=== PATIENT | male | born 1955 | race Caucasian/White ===

== ENCOUNTER 2020-06-12 00:57 | Inpatient (IN) | payer BC ==
[2020-06-12] MEDS ORDERED: HYDROmorphone 0.5 MG/0.5 ML Syringe IVPUSH ONE (01:17)
[2020-06-12] MEDS ORDERED: Metoclopramide 10 MG/2 ML SDV IVPUSH ONE (01:17)
--- NOTE | 2020-06-12 01:21 | EDM.PDOC ---
ED HPI GENERAL MEDICAL PROBLEM - General Chief Complaint: Abdominal Pain Stated Complaint: ABDOMINAL PAIN Time Seen by Provider: 06/12/20 01:02 Source of Information: Reports: Patient History Limitations: Reports: No Limitations - History of Present Illness INITIAL COMMENTS - FREE TEXT/NARRATIVE: 65-year-old male presents to the ED complaining of diffuse primarily upper abdominal pain that radiates along the bottom of each costal margin slightly towards his flank. He states he has had persistent upper abdominal discomfort for the last 3 days in a row. He is eaten small quantities of food without making the pain any worse but no better. Last tried to eat a few scrambled eggs about 2000 hrs. last evening but got only about half of his meal down. He is still passing flatus. He had a normal bowel movement within the last 24 hours without blood. He states he has had this type of pain off and on for the last 5 weeks prior to this he has never had any abdominal problems. He has had no previous abdominal surgery. Occasionally feels nauseated due to the intensity of the pain but has never vomited. Current pain is rated as 9 out of 10. There is no way that he could sleep due to the severity the pain tonight. He has been drinking Gatorade and Powerade most of the weekend. He states his urine is nice and clear. Denies any real flank pain. His only previous surgery is a right total hip replacement recently done with the aid of robotic assistance. He is currently taking no medications. Onset: Gradual Onset Date: 06/09/20 (Pain syndrome has been present for the last 3 days continuously but worse in the last 24 hours. Describes it as a constant deep ache with intermittent colicky component. He is aware of increased bowel sounds throughout his abdomen.) Duration: Day(s):, Getting Worse, Other (Pain does seem to have a colicky component mostly felt in his epigastrium.) Location: Reports: Abdomen (Early upper abdomen but sometimes below the umbilicus as well both sides.) Quality: Reports: Ache, Other Severity: Moderate (Vaginal sharp stabbing colicky type pain.) Improves with: Reports: None ( Currently 9 out of 10.) Worsens with: Reports: None Context: Denies: Activity, Exercise, Lifting, Sick Contact, Trauma, Other Associated Symptoms: Reports: Loss of Appetite, Nausea/Vomiting, Other (Deep breathing does not make the abdominal pain worse.). Denies: Confusion, Chest Pain, Cough, cough w sputum, Diaphoresis, Fever/Chills, Headaches, Malaise, Rash, Seizure (Is he without vomiting.), Shortness of Breath, Syncope, Weakness Treatments MANAGER OF PROJECT MANAGEMENT: Reports: Other (see below) Abdominal Pain Score (Numeric/FACES): 7 - Related Data Allergies Allergy/AdvReac Type Severity Reaction Status Date / Time No Known Allergies Allergy Verified 06/12/20 01:11 Home Meds: Home Meds . [No Known Home Meds] 06/12/20 [History] Past Medical History - Past Surgical History Musculoskeletal Surgical History: Reports: Hip Replacement (Right total hip replacement with the assist of robotic surgery. It was done early January 2020 by the [facility] orthopedic surgeon. He states he required very little back pain medication after the hip was fixed as it felt so much better.) Social & Family History - Tobacco Use Tobacco Use Status *Q: Never Tobacco User - Alcohol Use Alcohol Use History: Yes Days Per Week of Alcohol Use: 2 Alcohol Use in Last Twelve Months: Yes Alcohol Use Frequency: Weekly - Living Situation & Occupation Occupation: Employed ED ROS GENERAL - Review of Systems Review Of Systems: See Below Constitutional: Reports: Malaise, Decreased Appetite. Denies: Fever, Chills, We akness, Fatigue, Weight Loss HEENT: Reports: Glasses Respiratory: Reports: No Symptoms. Denies: Shortness of Breath, Wheezing, Pleuritic Chest Pain, Cough Cardiovascular: Reports: No Symptoms. Denies: Chest Pain, Blood Pressure Problem, Claudication, Lightheadedness, Orthopnea, Other Endocrine: Reports: No Symptoms GI/Abdominal: Reports: Abdominal Pain (History of present illness.), Decreased Appetite, Nausea, Other (Nausea does feel bloated.). Denies: Constipation, D iarrhea, Difficulty Swallowing, Distension, Flatus, Hematemesis, Hematochezia, Melena, Mucous in Stool : Reports: No Symptoms, Other (Sure usually x1.) Musculoskeletal: Reports: Other (He said right total hip replacement doing very well.) Skin: Reports: No Symptoms Neurological: Reports: No Symptoms Psychiatric: Reports: No Symptoms Hematologic/Lymphatic: Reports: No Symptoms Immunologic: Reports: No Symptoms ED EXAM, GI/ABD - Physical Exam Exam: See Below Exam Limited By: No Limitations General Appearance: Alert, WD/WN, Mild Distress, Other (Temperature is 36.6. Heart rate of 74 and sinus respiratory 16 O2 sats 95% room air BP 162/89.) Eyes: Bilateral: Normal Appearance (No scleral icterus or blepharal pallor.) Throat/Mouth: Normal Inspection, Normal Lips, Normal Oropharynx Head: Atraumatic, Normocephalic Neck: Normal Inspection, Supple, Non-Tender, Full Range of Motion. No: Carotid Bruit, Lymphadenopathy (L), Lymphadenopathy (R) Respiratory/Chest: No Respiratory Distress, Lungs Clear, Normal Breath Sounds, No Accessory Muscle Use Cardiovascular: Normal Peripheral Pulses, Regular Rate, Rhythm, No Edema, No Gallop, No Murmur, No Rub GI/Abdominal Exam: No Organomegaly, No Abnormal Bruit, No Mass, Pelvis Stable, Distended (Sounds are hyperactive in all 4 quadrants. Mildly distended and diffusely mildly tympany to percussion.), Tender (Under right upper quadrant of the abdomen with a mildly positive Khan sign. Tenderness in the midline as if he is developing some diastases recti. No definitive ventral hernia palpable.), Abnormal Bowel Sounds, Other (Male) Exam: No Hernia (Nominal girth limits ability to palpate solid or organs.) Back Exam: Normal Inspection, Full Range of Motion. No: CVA Tenderness (L), CVA Tenderness (R) Extremities: Normal Inspection, Normal Range of Motion, Non-Tender, Other (Healing surgical wound right posterior hip) Neurological: Alert, Oriented, CN II-XII Intact, Normal Cognition Psychiatric: Normal Affect, Normal Mood Skin Exam: Warm, Dry, Intact, Normal Color, No Rash #1 Interpretation EKG Date: 06/12/20 Time: 01:29 Rhythm: NSR Rate (Beats/Min): 74 [place]: Normal P-Wave: Present QRS: Other (Early R wave transition V2 consider right ventricular hypertrophy. Decreased voltage precordial leads Q waves evident in lead III and aVF consider possible old inferior wall myocardial infarction) ST-T: Normal QT: Normal EKG Interpretation Comments: Borderline ECG Course - Vital Signs Last Recorded V/S: Last Vital Signs Temp 36.7 C 06/12/20 15:50 Pulse 55 L 06/12/20 15:50 Resp 16 06/12/20 15:50 BP 118/69 06/12/20 15:50 Pulse Ox 98 06/12/20 15:50 - Orders/Labs/Meds Orders: Active Orders 24 hr Category Date Time Status Sodium Chloride 0.9% [Saline Flush] Med 06/12/20 02:30 Active 10 ml FLUSH BOLUS Medication Orders Acetaminophen (Acetaminophen 325 Mg Tab) 650 mg PO Q4H PRN PRN Reason: Pain (Mild 1-3)/fever Hydrocodone Bitart/Acetaminophen (Acetaminophen/Hydrocodone 325-10 Mg Tab) 1 tab PO Q3H PRN PRN Reason: Pain (moderate 4-6) Last Admin: 06/12/20 16:29 Dose: 1 tab Documented by: ANA Hydromorphone HCl (Hydromorphone 0.5 Mg/0.5 Ml Syringe) 0.5 mg IVPUSH Q2H PRN PRN Reason: Pain (severe 7-10) Dextrose/Lactated Ringer's (Dextrose 5%-Lactated Ringers) 1,000 mls @ 150 mls/hr IV ASDIRECTED [facility] Last Admin: 06/12/20 18:07 Dose: 150 mls/hr Documented by: Infusion: 06/12/20 17:59 Dose: 150 mls/hr Documented by: Admin: 06/12/20 11:18 Dose: 150 mls/hr Documented by: ANA Miscellaneous Information (Remove And Replace Nicotine Patch) 0 ea TRDERM DAILY@1400 [facility] Nicotine (Nicotine 21 Mg/24 Hr Patch) 21 mg TRDERM Q24H [facility] Last Admin: 06/12/20 14:44 Dose: 21 mg Documented by: ANA Ondansetron HCl (Ondansetron 4 Mg/2 Ml Sdv) 4 mg IV Q6H PRN PRN Reason: Nausea/Vomiting Oxycodone HCl (Oxycodone 5 Mg Tab) 5 mg PO Q4H PRN PRN Reason: Pain (moderate 4-6) Rivaroxaban (Rivaroxaban 15 Mg Tab) 15 mg PO BIDMEALS [facility] Last Admin: 06/12/20 16:26 Dose: 15 mg Documented by: ANA Sodium Chloride (Sodium Chloride 0.9% 10 Ml Syringe) 10 ml FLUSH BOLUS [facility] Last Admin: 06/12/20 03:07 Dose: 10 ml Documented by: ONEIGIN Labs: Laboratory Tests 06/12/20 06/12/20 06/12/20 Range/Units 01:25 01:25 01:25 WBC 9.95 H (4.23-9.07) K/mm3 RBC 4.88 (4.63-6.08) M/mm3 Hgb 14.6 (13.7-17.5) gm/dl Hct 44.1 (40.1-51.0) % MCV 90.4 (79.0-92.2) fl MCH 29.9 (25.7-32.2) pg MCHC 33.1 (32.2-35.5) g/dl RDW Std Deviation 42.4 (35.1-43.9) fL Plt Count 254 (163-337) K/mm3 MPV 9.4 (9.4-12.3) fl Neut % (Auto) 58.3 (34.0-67.9) % Lymph % (Auto) 26.7 (21.8-53.1) % Cedar % (Auto) 9.3 (5.3-12.2) % Eos % (Auto) 5.2 (0.8-7.0) Baso % (Auto) 0.3 (0.1-1.2) % Neut # (Auto) 5.79 H (1.78-5.38) K/mm3 Lymph # (Auto) 2.66 (1.32-3.57) K/mm3 [place]edar # (Auto) 0.93 H (0.30-0.82) K/mm3 Eos # (Auto) 0.52 (0.04-0.54) K/mm3 Baso # (Auto) 0.03 (0.01-0.08) K/mm3 PT 10.0 (9.7-12.0) SECONDS INR 0.93 APTT 27.2 (21.7-31.4) SECONDS D-Dimer, Quantitative (0.19-0.50) mg/L Sodium 139 (136-145) mEq/L Potassium 3.9 (3.5-5.1) mEq/L Chloride 102 (98-107) mEq/L Carbon Dioxide 26 (21-32) mEq/L Anion Gap 14.9 (5-15) BUN 15 (7-18) mg/dL Creatinine 0.9 (0.7-1.3) mg/dL Est Cr Clr Drug Dosing TNP Estimated GFR (MDRD) > 60 (>60) mL/min BUN/Creatinine Ratio 16.7 (14-18) Glucose 131 H (80-115) mg/dL Calcium 9.4 (8.5-10.1) mg/dL Magnesium 2.2 (1.8-2.4) mg/dl Total Bilirubin 0.7 (0.2-1.0) mg/dL GGT 26 (15-85) U/L AST 23 (15-37) U/L ALT 26 (16-63) U/L Alkaline Phosphatase 108 (46-116) U/L Troponin I < 0.017 (0.00-0.056) ng/mL C-Reactive Protein 2.6 H* (<1.0) mg/dL Total Protein 7.9 (6.4-8.2) g/dl Albumin 3.7 (3.4-5.0) g/dl Globulin 4.2 gm/dL Albumin/Globulin Ratio 0.9 L (1-2) Lipase 68850 H (73-393) U/L Ketones (0.0-0.3) mM SARS-CoV-2 RNA (JEAN-CLAUDE) (NEGATIVE) 06/12/20 06/12/20 06/12/20 Range/Units 01:25 01:25 03:20 WBC (4.23-9.07) K/mm3 RBC (4.63-6.08) M/mm3 Hgb (13.7-17.5) gm/dl Hct (40.1-51.0) % MCV (79.0-92.2) fl MCH (25.7-32.2) pg MCHC (32.2-35.5) g/dl RDW Std Deviation (35.1-43.9) fL Plt Count (163-337) K/mm3 MPV (9.4-12.3) fl Neut % (Auto) (34.0-67.9) % Lymph % (Auto) (21.8-53.1) % [place]edar % (Auto) (5.3-12.2) % Eos % (Auto) (0.8-7.0) Baso % (Auto) (0.1-1.2) % Neut # (Auto) (1.78-5.38) K/mm3 Lymph # (Auto) (1.32-3.57) K/mm3 [place] # (Auto) (0.30-0.82) K/mm3 Eos # (Auto) (0.04-0.54) K/mm3 Baso # (Auto) (0.01-0.08) K/mm3 PT (9.7-12.0) SECONDS INR APTT (21.7-31.4) SECONDS D-Dimer, Quantitative 2.01 H (0.19-0.50) mg/L Sodium (136-145) mEq/L Potassium (3.5-5.1) mEq/L Chloride (98-107) mEq/L Carbon Dioxide (21-32) mEq/L Anion Gap (5-15) BUN (7-18) mg/dL Creatinine (0.7-1.3) mg/dL Est Cr Clr Drug Dosing Estimated GFR (MDRD) (>60) mL/min BUN/Creatinine Ratio (14-18) Glucose (80-115) mg/dL Calcium (8.5-10.1) mg/dL Magnesium (1.8-2.4) mg/dl Total Bilirubin (0.2-1.0) mg/dL GGT (15-85) U/L AST (15-37) U/L ALT (16-63) U/L Alkaline Phosphatase (46-116) U/L Troponin I (0.00-0.056) ng/mL C-Reactive Protein (<1.0) mg/dL Total Protein (6.4-8.2) g/dl Albumin (3.4-5.0) g/dl Globulin gm/dL Albumin/Globulin Ratio (1-2) Lipase (73-393) U/L Ketones 0.19 (0.0-0.3) mM SARS-CoV-2 RNA (JEAN-CLAUDE) Negative (NEGATIVE) Meds: Medications Generic Name Dose Route Start Last Admin Trade Name Freq PRN Reason Stop Dose Admin Acetaminophen 650 mg 06/12/20 07:26 Acetaminophen 325 Mg Tab PO Q4H PRN Pain (Mild 1-3)/fever Hydrocodone Bitart/Acetaminophen 1 tab 06/12/20 16:05 06/12/20 16:29 Acetaminophen/Hydrocodone 325-10 Mg Tab PO 1 tab Q3H PRN Administration Pain (moderate 4-6) Hydromorphone HCl 0.5 mg 06/12/20 07:26 Hydromorphone 0.5 Mg/0.5 Ml Syringe IVPUSH Q2H PRN Pain (severe 7-10) Dextrose/Lactated Ringer's 1,000 mls @ 150 mls/hr 06/12/20 11:00 06/12/20 18:07 Dextrose 5%-Lactated Ringers IV 150 mls/hr ASDIRECTED [facility] Administration Miscellaneous Information 0 ea 06/13/20 14:00 Remove And Replace Nicotine Patch TRDERM DAILY@1400 [facility] Nicotine 21 mg 06/12/20 14:00 06/12/20 14:44 Nicotine 21 Mg/24 Hr Patch TRDERM 21 mg Q24H [facility] Administration Ondansetron HCl 4 mg 06/12/20 07:26 Ondansetron 4 Mg/2 Ml Sdv IV Q6H PRN Nausea/Vomiting Oxycodone HCl 5 mg 06/12/20 07:26 Oxycodone 5 Mg Tab PO Q4H PRN Pain (moderate 4-6) Rivaroxaban 15 mg 06/12/20 17:00 06/12/20 16:26 Rivaroxaban 15 Mg Tab PO 15 mg BIDMEALS [facility] Administration Sodium Chloride 10 ml 06/12/20 02:30 06/12/20 03:07 Sodium Chloride 0.9% 10 Ml Syringe FLUSH 10 ml BOLUS [facility] Administration Discontinued Medications Generic Name Dose Route Start Last Admin Trade Name Freq PRN Reason Stop Dose Admin Hydromorphone HCl 0.5 mg 06/12/20 01:17 06/12/20 01:29 Hydromorphone 0.5 Mg/0.5 Ml Syringe IVPUSH 06/12/20 01:18 0.5 mg ONETIME ONE Administration Hydromorphone HCl 1 mg 06/12/20 03:12 06/12/20 03:18 Hydromorphone 1 Mg/Ml Syringe IVPUSH 06/12/20 03:13 1 mg ONETIME ONE Administration Dextrose/Sodium Chloride 1,000 mls @ 250 mls/hr 06/12/20 01:30 06/12/20 01:27 Dextrose 5%-Normal Saline IV 250 mls/hr ASDIRECTED [facility] Administration Sodium Chloride 100 mls @ 60 drops/min 06/12/20 02:30 06/12/20 03:07 Normal Saline IV 60 drops/min ASDIRECTED [facility] Administration Lactated Ringer's 1,000 mls @ 150 mls/hr 06/12/20 03:30 06/12/20 03:53 Ringers, Lactated IV 150 mls/hr ASDIRECTED [facility] Administration Iopamidol 100 ml 06/12/20 02:19 06/12/20 03:07 Iopamidol 755 Mg/Ml 100 Ml Bottle IVPUSH 06/12/20 02:20 100 ml ONETIME ONE Administration Lorazepam 0.5 mg 06/12/20 03:12 06/12/20 03:19 Lorazepam 2 Mg/Ml Sdv IVPUSH 06/12/20 03:13 0.5 mg ONETIME ONE Administration Metoclopramide HCl 10 mg 06/12/20 01:17 06/12/20 01:27 Metoclopramide 10 Mg/2 Ml Sdv IVPUSH 06/12/20 01:18 10 mg ONETIME ONE Administration Miscellaneous Information 1 ea 06/12/20 13:00 06/12/20 14:55 Remove And Replace Nicotine Patch TRDERM Not Given DAILY@1300 [facility] Nicotine 21 mg 06/12/20 13:00 06/12/20 14:55 Nicotine 21 Mg/24 Hr Patch TRDERM Not Given DAILY [facility] Rivaroxaban 15 mg 06/12/20 03:40 06/12/20 03:53 Rivaroxaban 15 Mg Tab PO 06/12/20 03:41 15 mg ONETIME ONE Administration - Radiology Interpretation Free Text/Narrative:: 65-year-old male presents to the ED with generalized upper abdominal discomfort for the better part of 3 days. States he is never had pain like this in the past. He can still eat a little bit. He is intermittently nauseated with no vomiting. Had a normal bowel movement in the last 24 hours. No previous abdominal surgery. Pain started on Friday after eating a subsandwich. He has been eating fairly high amount of fatty foods. He is aware of his abdomen making all kinds of gurgling and growling sounds. No past history of problems with constipation. Mildly positive Khan sign on exam. Tenderness in the epigastrium as well. Bowel sounds are hyperactive in all 4 quadrants. Nonsurgical abdomen. Plan 1 view abdomen to be obtained. Routine labs to be obtained including serum lipase and GGT. - Re-Assessments/Exams Free Text/Narrative Re-Assessment/Exam: 06/12/20 01:39 Hematology reveals a normal white count at 9.95. Auto differential shows 58% neutrophils. Hemoglobin is 14.6 with hematocrit of 44.1 platelet counts 254,000. 06/12/20 02:07 PT is 10.0 with an INR of 0.93. PTT is 27.2. D-dimer did come back elevated at 2.01. Sodium is 139 with a potassium of 3.9. Chloride 109 with a bicarb of 26. Anion gap is 14.9. BUN is 15 with a creatinine of 0.9 and a GFR greater than 60. Glucose is slightly elevated 131. Calcium is 9.4 magnesium is 2.2 total bilirubin is 0.7 GGT is normal at 26 AST is 23 ALT is 26. Alk phos today is 108. Troponin I is less than 0.017 C-reactive protein is mildly elevated at 2.6. Total protein is 7.9 with an albumin fraction of 3.7 l ipase is pending serum ketones 0.19 normal. Jay the findings with the patient and he and I both agree that we will proceed to CT pulmonary angiogram to rule out a PE although this seems unlikely but. However in light of recent right total hip replacement it is not impossible. 06/12/20 02:44 Serum lipase is returned markedly elevated at 13,204. This would explain his diffuse severe upper abdominal pain. Labs do not support any biliary tree obstruction. CT of the chest is done with IV contrast and I will hopefully be able to see his gallbladder. He was still not likely requires abdominal ultrasound of his gallbladder to see if cholelithiasis is the cause of his pancreatitis. Chances are he will require admission to hospital for treatment of his pancreatitis. He remains in the CT suite at this time for CT pulmonary angiogram. 06/12/20 03:15 spoken to the patient about the markedly elevated serum lipase indicating acute pancreatitis as a cause of his upper abdominal pain for the last 3 days. He needs to come in to hospital for IV fluids. He is not been vomiting and therefore there is no indication for placement of nasogastric tube at this time. CT pulmonary angiogram has just been completed and the results are not yet available to me. Hopefully I will have a look at his pancreas and gallbladder on the CT exam. In the meantime I am going to repeat Dilaudid 1 mg IV for pain relief with Ativan 0.5 mg IV to allow him to get some sleep. He will stay in the ED until a more suitable time to call the hospitalist on-call Dr. Simmons. COVID-19 screen needs to be carried out as well. I also ordered a serum triglyceride level and cholesterol panel. 06/12/20 03:40 CT pulmonary angiogram has now been made available to me. I have concerns about a clot in the left lingular portion of the left lung. I spoke with the [facility] radiologist and he concurs. He says there is a subtle acute pulmonary emboli to the lingular segment of the left upper lobe. This expands the artery suggesting represents an acute PE. Aorta appears unremarkable with no aortic aneurysm or dissection. Lungs are unremarkable with no consolidation or masses. Pleural spaces show no acute infiltrates or pleural effusions. In the abdomen he did identify peripancreatic edema suggestive of acute pancreatitis. Heart is unremarkable with no cardiomegaly no pericardial effusion. Lymph nodes appeared unremarkable. I will therefore proceed with placing him on Xarelto starting with 15 mg per ora now. I would not give him any Lovenox at this time since he is in no distress and there is a risk of hemorrhagic pancreatitis. In the morning he is going to need ultrasound of his gallbladder and both calves by Doppler ultrasound. 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 Clinically there is no evidence of PE in either lower extremity. 06/12/20 05:14 patient has been able to get some sleep after IV Dilaudid and 0.5 mg of Ativan. Blood pressure remains around 114/73 O2 sats 93 to 95% room air heart rate 56 and sinus. Will have routine labs performed at 0700 hrs. with serum cholesterol and triglycerides done at that time. Departure - Departure Time of Disposition: 08:00 Disposition: Admitted As Inpatient 67 Condition: Fair Clinical Impression: Pulmonary embolism Qualifiers: Pulmonary embolism type: unspecified Chronicity: acute Acute cor pulmonale presence: without acute cor pulmonale Qualified Code(s): I26.99 - Other pulmonary embolism without acute cor pulmonale Acute pancreatitis Qualifiers: Pancreatitis type: unspecified pancreatitis type Acute pancreatitis complication: unspecified Qualified Code(s): K85.90 - Acute pancreatitis without necrosis or infection, unspecified - Discharge Information *PRESCRIPTION DRUG MONITORING PROGRAM REVIEWED*: Not Applicable *COPY OF PRESCRIPTION DRUG MONITORING REPORT IN PATIENT HILARIO: Not Applicable Sepsis Event Note (ED) - Evaluation Sepsis Screening Result: No Definite Risk - My Orders Last 24 Hours: My Active Orders 06/12/20 02:30 Sodium Chloride 0.9% [Saline Flush] 10 ml FLUSH BOLUS - Assessment/Plan Last 24 Hours: My Active Orders 06/12/20 02:30 Sodium Chloride 0.9% [Saline Flush] 10 ml FLUSH BOLUS
[2020-06-12] MEDS ORDERED: Dextrose 5%-0.9% NaCl 1,000 ML IV SCH (01:30)
[2020-06-12] MEDS ORDERED: Iopamidol 755 Mg/ML 100 ML Bottle IVPUSH ONE (02:19)
[2020-06-12] MEDS ORDERED: Sodium Chloride 0.9% 100 ML IV SCH (02:30)
[2020-06-12] MEDS ORDERED: Sodium Chloride 0.9% 10 ML Syringe FLUSH SCH (02:30)
[2020-06-12] MEDS ORDERED: LORazepam 2 MG/ML SDV IVPUSH ONE (03:12)
[2020-06-12] MEDS ORDERED: HYDROmorphone 1 MG/ML Syringe IVPUSH ONE (03:12)
[2020-06-12] MEDS ORDERED: Lactated Ringers 1,000 ML IV SCH (03:30)
[2020-06-12] MEDS ORDERED: Rivaroxaban 15 MG Tab PO ONE (03:40)
[2020-06-12] MEDS ORDERED: Ondansetron 4 MG/2 ML SDV IV PRN (07:26)
[2020-06-12] MEDS ORDERED: Acetaminophen 325 MG Tab PO PRN (07:26)
[2020-06-12] MEDS ORDERED: oxyCODONE 5 MG Tab PO PRN (07:26)
[2020-06-12] MEDS ORDERED: HYDROmorphone 0.5 MG/0.5 ML Syringe IVPUSH PRN (07:26)
--- NOTE | 2020-06-12 07:26 | PCM.HP.2 ---
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 He states the pain has been present for the past 3 days. States he is only able to eat very small amounts and this does not make the pain better or worse. Reports passing flatus and normal bowel movement within the past 24 hours without blood. States has had this pain on and off for the last 5 weeks and has never had any prior abdominal problems or abdominal surgeries. Reports he occasionally feels nauseated because of the intensity of the pain but he has not vomited. Rates pain at 9 out of 10 and states he is unable to sleep due to the severity of pain. He has been drinking Gatorade and Powerade most of the weekend and states his urine is clear. Denies any real flank pain and states his only prior surgery was a right MIRTA done with robotic assistance. States he is not taking any current medications. In the ED temp was 36.6 Celsius. Pulse 74. Respirations 16. Blood pressure 162/89. Pulse ox 95%. Twelve-lead EKG is obtained showing a sinus rhythm at 74 bpm with early R wave transition in V2 and decreased voltage in precordial leads. There are Q waves noted in leads III and aVF. No ST changes. Labs are obtained showing a mild leukocytosis at 9.95. Hemoglobin 14.6. Platelet 254. Neutrophils are elevated at 5.79. INR 0.93. Sodium is 139. Potassium 3.9. Chloride 102. Carbon dioxide 26. Anion gap 14.9. BUN is 15, creatinine 0.9. GFR greater than 60. Glucose is 131. Magnesium 2.2. Total bilirubin 0.7. GGT is 26. AST is 23, ALT 26, alkaline phosphatase 1.07. Troponin is less than 0.017. CRP is 2.6. Albumin is 3.7. Lipase is very high at 13,204. D-dimer is elevated at 2.01. Ketones are 0.19. SARS-CoV-2 RNA is negative. On exam patient is noted to have mildly positive Khan sign and tenderness in the epigastric area. Bowel sounds are hyperactive in all [address] angiogram of the chest is obtained and there are subtle acute pulmonary emboli to lingular segment of the left upper lobe. This expands the arteries suggesting it represents an acute PE. There is also peripancreatic edema noted suggesting acute pancreatitis. Abdominal x-ray is obtained which shows air within the colon but nothing acute. He is given Dilaudid for pain as well as IV fluids. He is also given metoclopramide for nausea and Xarelto for his PE 50 mg. Is given 0.5 mg of IV push lorazepam to help with sleep and spends the night in the emergency room. Orders are placed for bilateral lower extremity ultrasound, limited upper abdominal ultrasound, lipid panel, UA. He carries a history of a right MIRTA in early January 2020. He is not on any medications. He is not a smoker. He resides in [place] but splits his time between there and [place]. He does not have a PCP locally but does have one in [place]. Abdominal Pain Score (Numeric/FACES): 7 - Related Data Allergies/Adverse Reactions: Allergies Allergy/AdvReac Type Severity Reaction Status Date / Time No Known Allergies Allergy Verified 06/12/20 01:11 Home Medications: Home Meds . [No Known Home Meds] 06/12/20 [History] Past Medical History - Past Surgical History Musculoskeletal Surgical History: Reports: Hip Replacement (Right total hip replacement with the assist of robotic surgery. It was done early January 2020 by the [facility] orthopedic surgeon. He states he required very little back pain medication after the hip was fixed as it felt so much better.) Social & Family History - Tobacco Use Tobacco Use Status *Q: Never Tobacco User - Alcohol Use Days Per Week of Alcohol Use: 2 - Living Situation & Occupation Occupation: Employed H&P Review of Systems - Review of Systems: Review Of Systems: See Below General: Reports: No Symptoms. Denies: Fever, Chills, Malaise, Weakness, Fatigue HEENT: Reports: No Symptoms. Denies: Headaches, Sore Throat Pulmonary: Reports: No Symptoms. Denies: Shortness of Breath, Wheezing, Cough, Sputum, Hemoptysis Cardiovascular: Reports: No Symptoms. Denies: Chest Pain, Palpitations, Edema, Blood Pressure Problem Gastrointestinal: Reports: Decreased Appetite. Denies: Abdominal Pain, Constipation, Diarrhea, Hematochezia, Melena, Nausea, Vomiting Genitourinary: Reports: No Symptoms. Denies: Pain Musculoskeletal: Reports: No Symptoms Skin: Reports: No Symptoms Psychiatric: Reports: No Symptoms Neurological: Reports: No Symptoms Hematologic/Lymphatic: Reports: No Symptoms Immunologic: Reports: No Symptoms Exam - Exam Exam: See Below - Vital Signs Vital Signs: Last Vital Signs Temp 97.8 F 06/12/20 01:08 Pulse 51 L 06/12/20 06:50 Resp 18 06/12/20 06:50 BP 121/89 06/12/20 06:50 Pulse Ox 97 06/12/20 06:50 - Exam Quality Assessment: DVT Prophylaxis (xarelto). No: Supplemental Oxygen, Urinary Catheter General: Alert, Oriented, Cooperative. No: Mild Distress HEENT: Conjunctiva Clear, EACs Clear, Mucosa Moist & [place], Posterior Pharynx Clear, PERRLA Neck: Supple, Trachea Midline, 2 Lungs: Clear to Auscultation, Normal Respiratory Effort Cardiovascular: Regular Rate, Regular Rhythm GI/Abdominal Exam: Normal Bowel Sounds, Soft, Non-Tender, No Distention. No: Guarding, Rebound (Male) Exam: Deferred Rectal (Males) Exam: Deferred Back Exam: Normal Inspection, Full Range of Motion, NT Extremities: Normal Inspection, Normal Range of Motion, Non-Tender, No Pedal Edema, Normal Capillary Refill, Other (Right hip wound from MIRTA - healing ) Peripheral Pulses: 2+: Radial (L), Radial (R), Dorsalis Pedis (L), Dorsalis Pedis (R) Skin: Warm, Dry, Intact Neurological: Cranial Nerves Intact (Grossly ) Neuro Extensive - Mental Status: Alert, Oriented x3 - Patient Data Lab Results Last 24 hrs: Laboratory Results - last 24 hr 06/12/20 06/12/20 06/12/20 Range/Units 01:25 01:25 01:25 WBC 9.95 H (4.23-9.07) K/mm3 RBC 4.88 (4.63-6.08) M/mm3 Hgb 14.6 (13.7-17.5) gm/dl Hct 44.1 (40.1-51.0) % MCV 90.4 (79.0-92.2) fl MCH 29.9 (25.7-32.2) pg MCHC 33.1 (32.2-35.5) g/dl RDW Std Deviation 42.4 (35.1-43.9) fL Plt Count 254 (163-337) K/mm3 MPV 9.4 (9.4-12.3) fl Neut % (Auto) 58.3 (34.0-67.9) % Lymph % (Auto) 26.7 (21.8-53.1) % Sullivan % (Auto) 9.3 (5.3-12.2) % Eos % (Auto) 5.2 (0.8-7.0) Baso % (Auto) 0.3 (0.1-1.2) % Neut # (Auto) 5.79 H (1.78-5.38) K/mm3 Lymph # (Auto) 2.66 (1.32-3.57) K/mm3 Sullivan # (Auto) 0.93 H (0.30-0.82) K/mm3 Eos # (Auto) 0.52 (0.04-0.54) K/mm3 Baso # (Auto) 0.03 (0.01-0.08) K/mm3 PT 10.0 (9.7-12.0) SECONDS INR 0.93 APTT 27.2 (21.7-31.4) SECONDS D-Dimer, Quantitative (0.19-0.50) mg/L Sodium 139 (136-145) mEq/L Potassium 3.9 (3.5-5.1) mEq/L Chloride 102 (98-107) mEq/L Carbon Dioxide 26 (21-32) mEq/L Anion Gap 14.9 (5-15) BUN 15 (7-18) mg/dL Creatinine 0.9 (0.7-1.3) mg/dL Est Cr Clr Drug Dosing TNP Estimated GFR (MDRD) > 60 (>60) mL/min BUN/Creatinine Ratio 16.7 (14-18) Glucose 131 H (80-115) mg/dL Calcium 9.4 (8.5-10.1) mg/dL Magnesium 2.2 (1.8-2.4) mg/dl Total Bilirubin 0.7 (0.2-1.0) mg/dL GGT 26 (15-85) U/L AST 23 (15-37) U/L ALT 26 (16-63) U/L Alkaline Phosphatase 108 (46-116) U/L Troponin I < 0.017 (0.00-0.056) ng/mL C-Reactive Protein 2.6 H* (<1.0) mg/dL Total Protein 7.9 (6.4-8.2) g/dl Albumin 3.7 (3.4-5.0) g/dl Globulin 4.2 gm/dL Albumin/Globulin Ratio 0.9 L (1-2) Lipase 39159 H (73-393) U/L Ketones (0.0-0.3) mM SARS-CoV-2 RNA (JEAN-CLAUDE) (NEGATIVE) 06/12/20 06/12/20 06/12/20 Range/Units 01:25 01:25 03:20 WBC (4.23-9.07) K/mm3 RBC (4.63-6.08) M/mm3 Hgb (13.7-17.5) gm/dl Hct (40.1-51.0) % MCV (79.0-92.2) fl MCH (25.7-32.2) pg MCHC (32.2-35.5) g/dl RDW Std Deviation (35.1-43.9) fL Plt Count (163-337) K/mm3 MPV (9.4-12.3) fl Neut % (Auto) (34.0-67.9) % Lymph % (Auto) (21.8-53.1) % Sullivan % (Auto) (5.3-12.2) % Eos % (Auto) (0.8-7.0) Baso % (Auto) (0.1-1.2) % Neut # (Auto) (1.78-5.38) K/mm3 Lymph # (Auto) (1.32-3.57) K/mm3 Sullivan # (Auto) (0.30-0.82) K/mm3 Eos # (Auto) (0.04-0.54) K/mm3 Baso # (Auto) (0.01-0.08) K/mm3 PT (9.7-12.0) SECONDS INR APTT (21.7-31.4) SECONDS D-Dimer, Quantitative 2.01 H (0.19-0.50) mg/L Sodium (136-145) mEq/L Potassium (3.5-5.1) mEq/L Chloride (98-107) mEq/L Carbon Dioxide (21-32) mEq/L Anion Gap (5-15) BUN (7-18) mg/dL Creatinine (0.7-1.3) mg/dL Est Cr Clr Drug Dosing Estimated GFR (MDRD) (>60) mL/min BUN/Creatinine Ratio (14-18) Glucose (80-115) mg/dL Calcium (8.5-10.1) mg/dL Magnesium (1.8-2.4) mg/dl Total Bilirubin (0.2-1.0) mg/dL GGT (15-85) U/L AST (15-37) U/L ALT (16-63) U/L Alkaline Phosphatase (46-116) U/L Troponin I (0.00-0.056) ng/mL C-Reactive Protein (<1.0) mg/dL Total Protein (6.4-8.2) g/dl Albumin (3.4-5.0) g/dl Globulin gm/dL Albumin/Globulin Ratio (1-2) Lipase (73-393) U/L Ketones 0.19 (0.0-0.3) mM SARS-CoV-2 RNA (JEAN-CLAUDE) Negative (NEGATIVE) Result Diagrams: 06/12/20 01:25 06/12/20 01:25 Sepsis Event Note - Evaluation Sepsis Screening Result: No Definite Risk - Focused Exam Vital Signs: Vital Signs Temp Pulse Resp BP Pulse Ox 06/12/20 06:50 51 L 18 121/89 97 06/12/20 01:08 97.8 F 74 16 162/89 H 95 - Problem List (1) Acute pancreatitis SNOMED Code(s): 713824683 ICD Code: K85.90 - ACUTE PANCREATITIS WITHOUT NECROSIS OR INFECTION, UNSP Status: Acute Priority: High Current Visit: Yes Qualifiers: Pancreatitis type: unspecified pancreatitis type Acute pancreatitis complication: unspecified Qualified Code(s): K85.90 - Acute pancreatitis without necrosis or infection, unspecified (2) Pulmonary embolism SNOMED Code(s): 41193472 ICD Code: I26.99 - OTHER PULMONARY EMBOLISM WITHOUT ACUTE COR PULMONALE Status: Acute Priority: High Current Visit: Yes Qualifiers: Pulmonary embolism type: unspecified Chronicity: acute Acute cor pulmonale presence: without acute cor pulmonale Qualified Code(s): I26.99 - Other pulmonary embolism without acute cor pulmonale (3) Nausea SNOMED Code(s): 716330127 ICD Code: R11.0 - NAUSEA Status: Acute Priority: High Current Visit: Yes (4) S/P total hip arthroplasty SNOMED Code(s): 507881830004, 832982525251 ICD Code: Z96.649 - PRESENCE OF UNSPECIFIED ARTIFICIAL HIP JOINT Status: Chronic Priority: Low Current Visit: No Qualifiers: Laterality: right Qualified Code(s): Z96.641 - Presence of right artificial hip joint Problem List Initiated/Reviewed/Updated: Yes Orders Last 24hrs: Active Orders 24 hr Category Date Time Status Patient Status [ADT] Routine ADT 06/12/20 06:59 Active EKG Documentation Completion [RC] STAT Care 06/12/20 01:18 Active Abdomen 1V Flat [CR] Stat Exams 06/12/20 01:18 Taken Abdomen Ltd [US] Stat Exams 06/12/20 06:57 Ordered Chest PE [Ang Chest] [CT] Stat Exams 06/12/20 02:13 Taken Venous Doppler Lwr Ext Bi [US] Stat Exams 06/12/20 06:58 Ordered CHOLESTEROL HDL [CHEM] Stat Lab 06/12/20 07:02 Received CHOLESTEROL LDL DIRECT [CHEM] Stat Lab 06/12/20 07:02 Received CHOLESTEROL TOTAL [CHEM] Stat Lab 06/12/20 07:02 Received LACTATE DEHYDROGENASE,LDH [CHEM] Stat Lab 06/12/20 07:02 Received LIPASE [CHEM] Stat Lab 06/12/20 07:02 Received TRIGLYCERIDES [CHEM] Stat Lab 06/12/20 07:02 Received URINALYSIS W/MICROSCOPIC [UA W/MICROSCOPIC] [URIN] Stat Lab 06/12/20 01:19 Ordered Lactated Ringers [Ringers, Lactated] 1,000 ml Med 06/12/20 03:30 Active IV ASDIRECTED Sodium Chloride 0.9% [Normal Saline] 100 ml Med 06/12/20 02:30 Active IV ASDIRECTED Sodium Chloride 0.9% [Saline Flush] Med 06/12/20 02:30 Active 10 ml FLUSH BOLUS Medication Orders Sodium Chloride (Normal Saline) 100 mls @ 60 drops/min IV ASDIRECTED ON LICENSE OF [facility] Last Admin: 06/12/20 03:07 Dose: 60 drops/min Documented by: HEAVEN Lactated Ringer's (Ringers, Lactated) 1,000 mls @ 150 mls/hr IV ASDIRECTED ON LICENSE OF [facility] Last Admin: 06/12/20 03:53 Dose: 150 mls/hr Documented by: SOPHIE Sodium Chloride (Sodium Chloride 0.9% 10 Ml Syringe) 10 ml FLUSH BOLUS ON LICENSE OF [facility] Last Admin: 06/12/20 03:07 Dose: 10 ml Documented by: HEAVEN Assessment/Plan Comment:: Assessment - day of admission 06/12/20 * 65-year-old male presents to ED with 3-day history of upper quadrant abdominal pain and nausea but no vomiting * Noted to have mildly positive Khan sign and hyperactive bowel sounds * Only medical history is a right MIRTA formed in January 2020 * Twelve-lead EKG shows a sinus rhythm at 74 bpm with early R wave transition, decreased voltage in precordial leads, and Q waves in leads III and aVF. * Labs in ED and on floor: * WBC 9.95 * Hemoglobin 14.6 * Neutrophils 5.79 * INR 0.93 * Sodium 139 * Potassium 3.9 * Anion gap 14.9 * BUN 15, creatinine 0.9, GFR greater than 60 * Glucose 131 * Magnesium 2.2 * Bilirubin 0.7 * GGT 26, AST 23, ALT 26, alkaline phosphatase 108 * Troponin less than 0.017 * CRP 2.6 * Albumin 3.7 * Lipase 64413-->02757 * Dimer 2.01 * Ketones 0.19 * SARS-CoV-2 RNA negative * LDH 148 * Triglycerides 101, total cholesterol 196, LDL 124, HDL 51 * UA is negative * Abdominal x-ray obtained shows scattered bowel gas and nothing acute, formal read pending. * CTA obtained shows subtle acute pulmonary emboli to the lingular segment of the left upper lobe. This expands the arteries suggesting acute PE. Peripancreatic edema is also noted suggesting acute pancreatitis. * He is given IV fluids, Dilaudid for pain, metoclopramide for nausea, Ativan to assist sleep, and 15 mg p.o. Xarelto is started. * Bilateral lower extremity ultrasound is negative for DVT. * Limited upper quadrant abdominal ultrasound shows nothing acute. * He subsequently mated to the medical floor for management of his PE and acute pancreatitis. * Christy's criteria: 1% predicted mortality on admission PLAN: Acute pancreatitis Nausea * NPO for now * IV fluids as ordered * Antiemetics as ordered * Ambulate * Pain medications as ordered * No need for statins * [employer]ine Plant Operator consultation Pulmonary embolism * Xarelto 15mg BID for 21 days * Telemetry S/P total hip arthroplasty * No acute concerns but likely exacerbated PE Code Status: Full code PCP: None local DVT prophylaxis: Xarelto Social: Patient resides in [place] and splits his time between there and [employer]. Disposition: Patient admitted to M/S/P on telemetry for management of PE and acu te pancreatitis. LOS likely 3-4 days. - Mortality Measure Prognosis:: Good
--- NOTE | 2020-06-12 08:26 | US ---
Limited abdominal ultrasound: Multiple real-time images of the upper right abdomen were obtained. Comparison: No prior ultrasound study is available, some anatomic findings are seen on CT chest study performed earlier on the same date (2:45 AM). Study is somewhat limited with multiple areas being poorly seen. Visualized portions of the liver show no discrete abnormality. Gallbladder contains no shadowing gallstones. No gallbladder wall thickening or biliary duct dilatation is appreciated. Visualized portions of the pancreas show no discrete abnormality. No fluid is seen around the pancreas. Right kidney shows no hydronephrosis or mass. Right kidney length is not well seen. Hepatic vein shows normal hepatopedal flow. Impression: 1. Somewhat limited study. 2. No fluid is identified around the pancreas. 3. No additional abnormality is definitely appreciated on right upper quadrant abdominal ultrasound. Diagnostic code #2
--- NOTE | 2020-06-12 08:27 | US ---
Bilateral lower extremity deep venous ultrasound: Duplex and color Doppler evaluation was obtained of the right and left common femoral, proximal greater saphenous, superficial femoral, popliteal, posterior tibial and peroneal veins. Comparison: No prior venous imaging is available of the lower extremities. Findings: Normal phasic flow, augmentation and compression is seen. Impression: 1. No findings of deep venous thrombosis within the right or left lower extremities. Diagnostic code #1
[2020-06-12] MEDS ORDERED: Dextrose 5%-Lact Ringers w/KCl 1,000 ML IV SCH (10:45)
--- NOTE | 2020-06-12 11:10 | CR ---
Abdomen: Supine view of the abdomen was obtained. Comparison: No prior abdominal x-ray is available. Right hip prosthesis is seen. Visualized bowel gas is normal. Minimal degenerative change is scattered within the spine. No discrete soft tissue abnormality is appreciated. Mild vascular calcification is seen. Phleboliths are noted within the pelvis. Impression: 1. Nothing acute is seen on supine abdominal x-ray. Diagnostic code #2
[2020-06-12] MEDS: Dextrose 5%-Lactated Ringers 1,000 ML IV SCH ×3 (11:18→23:32)
--- NOTE | 2020-06-12 11:34 | CT ---
CT chest Technique: Multiple axial sections through the chest were obtained. Intravenous contrast was utilized. Study has been performed as a pulmonary angiogram protocol. Comparison: No prior chest imaging is available. Findings: Pulmonary arteries are fairly well opacified. [facility] preliminary report makes mention of possible lingular pulmonary embolism. This is only an equivocal finding and is most likely of no significance given the negative bilateral lower extremity ultrasound. No other findings of pulmonary embolism are seen. Thoracic aorta shows mild atherosclerotic calcification without aneurysm. No mediastinal or hilar adenopathy is seen. No pericardial thickening is identified. No axillary adenopathy is appreciated. Very minimal inflammatory change is seen around the pancreas. Difficult to completely exclude minimal acute pancreatitis. Small calcifications appear to be present within the head of the pancreas. Lung window settings were reviewed which show no acute parenchymal abnormality. No pleural effusions are seen. No pneumothorax is seen. Bone window settings were reviewed. Scattered degenerative change is noted within the spine. No acute osseous abnormality is appreciated. Impression: 1. Small calcifications within the head of the pancreas. Questionable mild areas of inflammatory change around the pancreas. Difficult to exclude mild acute pancreatitis if patient has correlating symptoms. 2. Minimal abnormality within the lingular artery most likely artifact since no findings of venous thrombosis is seen on bilateral lower extremity ultrasound. 3. Nothing acute is otherwise seen. Diagnostic code #3 I mostly agree with preliminary report from [facility], finalized on 06/12/20, 4:34 AM CDT
[2020-06-12] MEDS ORDERED: Remove AND REPLACE NICOTINE Patch TRDERM SCH (13:00)
[2020-06-12] MEDS ORDERED: Nicotine 21 MG/24 Hr Patch TRDERM SCH (13:00)
[2020-06-12] MEDS: Nicotine 21 MG/24 Hr Patch TRDERM SCH (14:44)
[2020-06-12] MEDS ORDERED: Acetaminophen/HYDROcodone 325-10 MG Tab PO PRN (16:05)
[2020-06-12] MEDS: Rivaroxaban 15 MG Tab PO SCH (16:26)
[2020-06-13] MEDS: Dextrose 5%-Lactated Ringers 1,000 ML IV SCH (06:04)
[2020-06-13] MEDS: Rivaroxaban 15 MG Tab PO SCH (06:04)
--- NOTE | 2020-06-13 07:25 | PCM.PN ---
- General Info Date of Service: 06/13/20 Admission Dx/Problem (Free Text): Admission Diagnosis/Problem Admission Diagnosis/Problem Pancreatitis Subjective Update: In to see Syed. He reports he is doing very well and has no abdominal pain currently. We discussed plan to advance diet and discontinue IV fluids and he is quite happy with this. He had no nausea or vomiting. He is hungry. We will start with a clear liquid diet then advance to full full liquid for lunch. If he tolerates this well he would have a regular diet at supper. He is hoping to be discharged early tomorrow if at all possible. We will do everything we can to accommodate this. Likely discharge tomorrow pending continued improvement. Functional Status: Reports: Pain Controlled, Ambulating, Urinating. Denies: Tolerating Diet (NPO - will advance to clear liquids today ), New Symptoms - Review of Systems General: Reports: No Symptoms. Denies: Fever, Weakness, Fatigue, Malaise, Chills HEENT: Reports: No Symptoms. Denies: Headaches, Sore Throat Pulmonary: Reports: No Symptoms. Denies: Shortness of Breath, Pleuritic Chest Pain, Cough, Sputum, Wheezing Cardiovascular: Reports: No Symptoms. Denies: Chest Pain, Palpitations, Dyspnea on Exertion, Edema Gastrointestinal: Reports: No Symptoms. Denies: Abdominal Pain, Constipation, Diarrhea, Nausea, Vomiting Genitourinary: Reports: No Symptoms. Denies: Pain Musculoskeletal: Reports: No Symptoms Skin: Reports: No Symptoms. Denies: Cyanosis Neurological: Reports: No Symptoms. Denies: Confusion, Difficulty Walking, Gait Disturbance Psychiatric: Reports: No Symptoms - Patient Data Vitals - Most Recent: Last Vital Signs Temp 98.1 F 06/13/20 06:10 Pulse 62 06/13/20 06:10 Resp 18 06/13/20 06:10 BP 132/88 06/13/20 06:10 Pulse Ox 96 06/13/20 06:10 Weight - Most Recent: 283 lb I&O - Last 24 Hours: Intake & Output 06/12/20 06/13/20 06/13/20 22:59 06:59 14:59 Intake Total 900 1923 Output Total 1775 1040 Balance -875 883 Lab Results Last 24 Hours: Laboratory Results - last 24 hr 06/12/20 06/12/20 06/12/20 Range/Units 07:02 08:22 11:33 WBC (4.23-9.07) K/mm3 RBC (4.63-6.08) M/mm3 Hgb (13.7-17.5) gm/dl Hct (40.1-51.0) % MCV (79.0-92.2) fl MCH (25.7-32.2) pg MCHC (32.2-35.5) g/dl RDW Std Deviation (35.1-43.9) fL Plt Count (163-337) K/mm3 MPV (9.4-12.3) fl Neut % (Auto) (34.0-67.9) % Lymph % (Auto) (21.8-53.1) % [place] % (Auto) (5.3-12.2) % Eos % (Auto) (0.8-7.0) Baso % (Auto) (0.1-1.2) % Neut # (Auto) (1.78-5.38) K/mm3 Lymph # (Auto) (1.32-3.57) K/mm3 [place] # (Auto) (0.30-0.82) K/mm3 Eos # (Auto) (0.04-0.54) K/mm3 Baso # (Auto) (0.01-0.08) K/mm3 Sodium (136-145) mEq/L Potassium (3.5-5.1) mEq/L Chloride (98-107) mEq/L Carbon Dioxide (21-32) mEq/L Anion Gap (5-15) BUN (7-18) mg/dL Creatinine (0.7-1.3) mg/dL Est Cr Clr Drug Dosing mL/min Estimated GFR (MDRD) (>60) mL/min BUN/Creatinine Ratio (14-18) Glucose (80-115) mg/dL POC Glucose 137 H (80-115) mg/dL Calcium (8.5-10.1) mg/dL Magnesium (1.8-2.4) mg/dl Total Bilirubin (0.2-1.0) mg/dL AST (15-37) U/L ALT (16-63) U/L Alkaline Phosphatase (46-116) U/L Lactate Dehydrogenase 148 (85-227) U/L C-Reactive Protein (<1.0) mg/dL Total Protein (6.4-8.2) g/dl Albumin (3.4-5.0) g/dl Globulin gm/dL Albumin/Globulin Ratio (1-2) Triglycerides 101 (<150) mg/dL Cholesterol 196 (<200) mg/dL LDL Cholesterol Direct 124 H* (<100) mg/dL HDL Cholesterol 51.0 (40-59) mg/dL Lipase 39276 H (73-393) U/L Urine Color Yellow (Yellow) Urine Appearance Clear (Clear) Urine pH 6.0 (5.0-8.0) Ur Specific [place] 1.020 (1.005-1.030) Urine Protein Negative (Negative) Urine Glucose (UA) Negative (Negative) Urine Ketones Negative (Negative) Urine Occult Blood Negative (Negative) Urine Nitrite Negative (Negative) Urine Bilirubin Negative (Negative) Urine Urobilinogen 0.2 (0.2-1.0) Ur Leukocyte Esterase Negative (Negative) Urine RBC 0-5 (0-5) /hpf Urine WBC 0-5 (0-5) /hpf Ur Epithelial Cells 0-5 (0-5) /hpf Urine Bacteria Not seen (FEW) /hpf Urine Mucus Not seen (FEW) /hpf 06/12/20 06/12/20 06/13/20 Range/Units 17:50 23:37 04:44 WBC 7.95 (4.23-9.07) K/mm3 RBC 4.23 L (4.63-6.08) M/mm3 Hgb 12.9 L D (13.7-17.5) gm/dl Hct 39.0 L (40.1-51.0) % MCV 92.2 (79.0-92.2) fl MCH 30.5 (25.7-32.2) pg MCHC 33.1 (32.2-35.5) g/dl RDW Std Deviation 42.4 (35.1-43.9) fL Plt Count 218 (163-337) K/mm3 MPV 10.2 (9.4-12.3) fl Neut % (Auto) 57.3 (34.0-67.9) % Lymph % (Auto) 25.4 (21.8-53.1) % [place] % (Auto) 10.7 (5.3-12.2) % Eos % (Auto) 6.0 (0.8-7.0) Baso % (Auto) 0.5 (0.1-1.2) % Neut # (Auto) 4.55 (1.78-5.38) K/mm3 Lymph # (Auto) 2.02 (1.32-3.57) K/mm3 [place] # (Auto) 0.85 H (0.30-0.82) K/mm3 Eos # (Auto) 0.48 (0.04-0.54) K/mm3 Baso # (Auto) 0.04 (0.01-0.08) K/mm3 Sodium (136-145) mEq/L Potassium (3.5-5.1) mEq/L Chloride (98-107) mEq/L Carbon Dioxide (21-32) mEq/L Anion Gap (5-15) BUN (7-18) mg/dL Creatinine (0.7-1.3) mg/dL Est Cr Clr Drug Dosing mL/min Estimated GFR (MDRD) (>60) mL/min BUN/Creatinine Ratio (14-18) Glucose (80-115) mg/dL POC Glucose 140 H 131 H (80-115) mg/dL Calcium (8.5-10.1) mg/dL Magnesium (1.8-2.4) mg/dl Total Bilirubin (0.2-1.0) mg/dL AST (15-37) U/L ALT (16-63) U/L Alkaline Phosphatase (46-116) U/L Lactate Dehydrogenase (85-227) U/L C-Reactive Protein (<1.0) mg/dL Total Protein (6.4-8.2) g/dl Albumin (3.4-5.0) g/dl Globulin gm/dL Albumin/Globulin Ratio (1-2) Triglycerides (<150) mg/dL Cholesterol (<200) mg/dL LDL Cholesterol Direct (<100) mg/dL HDL Cholesterol (40-59) mg/dL Lipase (73-393) U/L Urine Color (Yellow) Urine Appearance (Clear) Urine pH (5.0-8.0) Ur Specific [place] (1.005-1.030) Urine Protein (Negative) Urine Glucose (UA) (Negative) Urine Ketones (Negative) Urine Occult Blood (Negative) Urine Nitrite (Negative) Urine Bilirubin (Negative) Urine Urobilinogen (0.2-1.0) Ur Leukocyte Esterase (Negative) Urine RBC (0-5) /hpf Urine WBC (0-5) /hpf Ur Epithelial Cells (0-5) /hpf Urine Bacteria (FEW) /hpf Urine Mucus (FEW) /hpf 06/13/20 06/13/20 Range/Units 04:44 06:12 WBC (4.23-9.07) K/mm3 RBC (4.63-6.08) M/mm3 Hgb (13.7-17.5) gm/dl Hct (40.1-51.0) % MCV (79.0-92.2) fl MCH (25.7-32.2) pg MCHC (32.2-35.5) g/dl RDW Std Deviation (35.1-43.9) fL Plt Count (163-337) K/mm3 MPV (9.4-12.3) fl Neut % (Auto) (34.0-67.9) % Lymph % (Auto) (21.8-53.1) % [place] % (Auto) (5.3-12.2) % Eos % (Auto) (0.8-7.0) Baso % (Auto) (0.1-1.2) % Neut # (Auto) (1.78-5.38) K/mm3 Lymph # (Auto) (1.32-3.57) K/mm3 [place] # (Auto) (0.30-0.82) K/mm3 Eos # (Auto) (0.04-0.54) K/mm3 Baso # (Auto) (0.01-0.08) K/mm3 Sodium 141 (136-145) mEq/L Potassium 4.0 (3.5-5.1) mEq/L Chloride 106 (98-107) mEq/L Carbon Dioxide 27 (21-32) mEq/L Anion Gap 12.0 (5-15) BUN 9 (7-18) mg/dL Creatinine 0.8 (0.7-1.3) mg/dL Est Cr Clr Drug Dosing 112.09 mL/min Estimated GFR (MDRD) > 60 (>60) mL/min BUN/Creatinine Ratio 11.3 L (14-18) Glucose 140 H (80-115) mg/dL POC Glucose 127 H (80-115) mg/dL Calcium 9.3 (8.5-10.1) mg/dL Magnesium 1.8 (1.8-2.4) mg/dl Total Bilirubin 0.9 (0.2-1.0) mg/dL AST 11 L (15-37) U/L ALT 21 (16-63) U/L Alkaline Phosphatase 86 (46-116) U/L Lactate Dehydrogenase (85-227) U/L C-Reactive Protein 2.3 H* (<1.0) mg/dL Total Protein 6.9 (6.4-8.2) g/dl Albumin 3.1 L (3.4-5.0) g/dl Globulin 3.8 gm/dL Albumin/Globulin Ratio 0.8 L (1-2) Triglycerides (<150) mg/dL Cholesterol (<200) mg/dL LDL Cholesterol Direct (<100) mg/dL HDL Cholesterol (40-59) mg/dL Lipase (73-393) U/L Urine Color (Yellow) Urine Appearance (Clear) Urine pH (5.0-8.0) Ur Specific [place] (1.005-1.030) Urine Protein (Negative) Urine Glucose (UA) (Negative) Urine Ketones (Negative) Urine Occult Blood (Negative) Urine Nitrite (Negative) Urine Bilirubin (Negative) Urine Urobilinogen (0.2-1.0) Ur Leukocyte Esterase (Negative) Urine RBC (0-5) /hpf Urine WBC (0-5) /hpf Ur Epithelial Cells (0-5) /hpf Urine Bacteria (FEW) /hpf Urine Mucus (FEW) /hpf Med Orders - Current: Current Medications Acetaminophen (Acetaminophen 325 Mg Tab) 650 mg PO Q4H PRN PRN Reason: Pain (Mild 1-3)/fever Hydrocodone Bitart/Acetaminophen (Acetaminophen/Hydrocodone 325-10 Mg Tab) 1 tab PO Q3H PRN PRN Reason: Pain (moderate 4-6) Last Admin: 06/12/20 16:29 Dose: 1 tab Documented by: Hydromorphone HCl (Hydromorphone 0.5 Mg/0.5 Ml Syringe) 0.5 mg IVPUSH Q2H PRN PRN Reason: Pain (severe 7-10) Dextrose/Lactated Ringer's (Dextrose 5%-Lactated Ringers) 1,000 mls @ 150 mls/hr IV ASDIRECTED [facility] Last Admin: 06/13/20 06:04 Dose: 150 mls/hr Documented by: Miscellaneous Information (Remove And Replace Nicotine Patch) 0 ea TRDERM DAILY@1400 [facility] Nicotine (Nicotine 21 Mg/24 Hr Patch) 21 mg TRDERM Q24H [facility] Last Admin: 06/12/20 14:44 Dose: 21 mg Documented by: Ondansetron HCl (Ondansetron 4 Mg/2 Ml Sdv) 4 mg IV Q6H PRN PRN Reason: Nausea/Vomiting Oxycodone HCl (Oxycodone 5 Mg Tab) 5 mg PO Q4H PRN PRN Reason: Pain (moderate 4-6) Rivaroxaban (Rivaroxaban 15 Mg Tab) 15 mg PO BIDMEALS [facility] Last Admin: 06/13/20 06:04 Dose: 15 mg Documented by: Sodium Chloride (Sodium Chloride 0.9% 10 Ml Syringe) 10 ml FLUSH BOLUS [facility] Last Admin: 06/12/20 03:07 Dose: 10 ml Documented by: Discontinued Medications Hydromorphone HCl (Hydromorphone 0.5 Mg/0.5 Ml Syringe) 0.5 mg IVPUSH ONETIME ONE Stop: 06/12/20 01:18 Last Admin: 06/12/20 01:29 Dose: 0.5 mg Documented by: Hydromorphone HCl (Hydromorphone 1 Mg/Ml Syringe) 1 mg IVPUSH ONETIME ONE Stop: 06/12/20 03:13 Last Admin: 06/12/20 03:18 Dose: 1 mg Documented by: Dextrose/Sodium Chloride (Dextrose 5%-Normal Saline) 1,000 mls @ 250 mls/hr IV ASDIRECTED [facility] Last Admin: 06/12/20 01:27 Dose: 250 mls/hr Documented by: Sodium Chloride (Normal Saline) 100 mls @ 60 drops/min IV ASDIRECTED [facility] Last Admin: 06/12/20 03:07 Dose: 60 drops/min Documented by: Lactated Ringer's (Ringers, Lactated) 1,000 mls @ 150 mls/hr IV ASDIRECTED [facility] Last Admin: 06/12/20 03:53 Dose: 150 mls/hr Documented by: Iopamidol (Iopamidol 755 Mg/Ml 100 Ml Bottle) 100 ml IVPUSH ONETIME ONE Stop: 06/12/20 02:20 Last Admin: 06/12/20 03:07 Dose: 100 ml Documented by: Lorazepam (Lorazepam 2 Mg/Ml Sdv) 0.5 mg IVPUSH ONETIME ONE Stop: 06/12/20 03:13 Last Admin: 06/12/20 03:19 Dose: 0.5 mg Documented by: Metoclopramide HCl (Metoclopramide 10 Mg/2 Ml Sdv) 10 mg IVPUSH ONETIME ONE Stop: 06/12/20 01:18 Last Admin: 06/12/20 01:27 Dose: 10 mg Documented by: Miscellaneous Information (Remove And Replace Nicotine Patch) 1 ea TRDERM DAILY@1300 [facility] Last Admin: 06/12/20 14:55 Dose: Not Given Documented by: Nicotine (Nicotine 21 Mg/24 Hr Patch) 21 mg TRDERM DAILY [facility] Last Admin: 06/12/20 14:55 Dose: Not Given Documented by: Rivaroxaban (Rivaroxaban 15 Mg Tab) 15 mg PO ONETIME ONE Stop: 06/12/20 03:41 Last Admin: 06/12/20 03:53 Dose: 15 mg Documented by: - Exam Quality Assessment: DVT Prophylaxis. No: Supplemental Oxygen, Urine Catheter General: Alert, Oriented, Cooperative, No Acute Distress HEENT: Pupils Equal, Pupils Reactive, Mucous Membr. Moist/Narciso Pena Neck: Supple, Trachea Midline Lungs: Clear to Auscultation, Normal Respiratory Effort Cardiovascular: Regular Rate, Regular Rhythm GI/Abdominal Exam: Normal Bowel Sounds, Soft, Non-Tender, No Distention (Male) Exam: Deferred Back Exam: Normal Inspection, Full Range of Motion Extremities: Normal Inspection, Normal Range of Motion, Non-Tender, No Pedal Edema, Normal Capillary Refill Peripheral Pulses: 2+: Radial (L), Radial (R), Dorsalis Pedis (L), Dorsalis Pedis (R) Skin: Warm, Dry, Intact Neurological: No New Focal Deficit Psy/Mental Status: Alert, Normal Affect, Normal Mood - Patient Data Lab Results Last 24 hrs: Laboratory Results - last 24 hr 06/12/20 06/12/20 06/12/20 Range/Units 07:02 08:22 11:33 WBC (4.23-9.07) K/mm3 RBC (4.63-6.08) M/mm3 Hgb (13.7-17.5) gm/dl Hct (40.1-51.0) % MCV (79.0-92.2) fl MCH (25.7-32.2) pg MCHC (32.2-35.5) g/dl RDW Std Deviation (35.1-43.9) fL Plt Count (163-337) K/mm3 MPV (9.4-12.3) fl Neut % (Auto) (34.0-67.9) % Lymph % (Auto) (21.8-53.1) % [place] % (Auto) (5.3-12.2) % Eos % (Auto) (0.8-7.0) Baso % (Auto) (0.1-1.2) % Neut # (Auto) (1.78-5.38) K/mm3 Lymph # (Auto) (1.32-3.57) K/mm3 [place] # (Auto) (0.30-0.82) K/mm3 Eos # (Auto) (0.04-0.54) K/mm3 Baso # (Auto) (0.01-0.08) K/mm3 Sodium (136-145) mEq/L Potassium (3.5-5.1) mEq/L Chloride (98-107) mEq/L Carbon Dioxide (21-32) mEq/L Anion Gap (5-15) BUN (7-18) mg/dL Creatinine (0.7-1.3) mg/dL Est Cr Clr Drug Dosing mL/min Estimated GFR (MDRD) (>60) mL/min BUN/Creatinine Ratio (14-18) Glucose (80-115) mg/dL POC Glucose 137 H (80-115) mg/dL Calcium (8.5-10.1) mg/dL Magnesium (1.8-2.4) mg/dl Total Bilirubin (0.2-1.0) mg/dL AST (15-37) U/L ALT (16-63) U/L Alkaline Phosphatase (46-116) U/L Lactate Dehydrogenase 148 (85-227) U/L C-Reactive Protein (<1.0) mg/dL Total Protein (6.4-8.2) g/dl Albumin (3.4-5.0) g/dl Globulin gm/dL Albumin/Globulin Ratio (1-2) Triglycerides 101 (<150) mg/dL Cholesterol 196 (<200) mg/dL LDL Cholesterol Direct 124 H* (<100) mg/dL HDL Cholesterol 51.0 (40-59) mg/dL Lipase 00411 H (73-393) U/L Urine Color Yellow (Yellow) Urine Appearance Clear (Clear) Urine pH 6.0 (5.0-8.0) Ur Specific [place] 1.020 (1.005-1.030) Urine Protein Negative (Negative) Urine Glucose (UA) Negative (Negative) Urine Ketones Negative (Negative) Urine Occult Blood Negative (Negative) Urine Nitrite Negative (Negative) Urine Bilirubin Negative (Negative) Urine Urobilinogen 0.2 (0.2-1.0) Ur Leukocyte Esterase Negative (Negative) Urine RBC 0-5 (0-5) /hpf Urine WBC 0-5 (0-5) /hpf Ur Epithelial Cells 0-5 (0-5) /hpf Urine Bacteria Not seen (FEW) /hpf Urine Mucus Not seen (FEW) /hpf 06/12/20 06/12/20 06/13/20 Range/Units 17:50 23:37 04:44 WBC 7.95 (4.23-9.07) K/mm3 RBC 4.23 L (4.63-6.08) M/mm3 Hgb 12.9 L D (13.7-17.5) gm/dl Hct 39.0 L (40.1-51.0) % MCV 92.2 (79.0-92.2) fl MCH 30.5 (25.7-32.2) pg MCHC 33.1 (32.2-35.5) g/dl RDW Std Deviation 42.4 (35.1-43.9) fL Plt Count 218 (163-337) K/mm3 MPV 10.2 (9.4-12.3) fl Neut % (Auto) 57.3 (34.0-67.9) % Lymph % (Auto) 25.4 (21.8-53.1) % [place] % (Auto) 10.7 (5.3-12.2) % Eos % (Auto) 6.0 (0.8-7.0) Baso % (Auto) 0.5 (0.1-1.2) % Neut # (Auto) 4.55 (1.78-5.38) K/mm3 Lymph # (Auto) 2.02 (1.32-3.57) K/mm3 [place] # (Auto) 0.85 H (0.30-0.82) K/mm3 Eos # (Auto) 0.48 (0.04-0.54) K/mm3 Baso # (Auto) 0.04 (0.01-0.08) K/mm3 Sodium (136-145) mEq/L Potassium (3.5-5.1) mEq/L Chloride (98-107) mEq/L Carbon Dioxide (21-32) mEq/L Anion Gap (5-15) BUN (7-18) mg/dL Creatinine (0.7-1.3) mg/dL Est Cr Clr Drug Dosing mL/min Estimated GFR (MDRD) (>60) mL/min BUN/Creatinine Ratio (14-18) Glucose (80-115) mg/dL POC Glucose 140 H 131 H (80-115) mg/dL Calcium (8.5-10.1) mg/dL Magnesium (1.8-2.4) mg/dl Total Bilirubin (0.2-1.0) mg/dL AST (15-37) U/L ALT (16-63) U/L Alkaline Phosphatase (46-116) U/L Lactate Dehydrogenase (85-227) U/L C-Reactive Protein (<1.0) mg/dL Total Protein (6.4-8.2) g/dl Albumin (3.4-5.0) g/dl Globulin gm/dL Albumin/Globulin Ratio (1-2) Triglycerides (<150) mg/dL Cholesterol (<200) mg/dL LDL Cholesterol Direct (<100) mg/dL HDL Cholesterol (40-59) mg/dL Lipase (73-393) U/L Urine Color (Yellow) Urine Appearance (Clear) Urine pH (5.0-8.0) Ur Specific [place] (1.005-1.030) Urine Protein (Negative) Urine Glucose (UA) (Negative) Urine Ketones (Negative) Urine Occult Blood (Negative) Urine Nitrite (Negative) Urine Bilirubin (Negative) Urine Urobilinogen (0.2-1.0) Ur Leukocyte Esterase (Negative) Urine RBC (0-5) /hpf Urine WBC (0-5) /hpf Ur Epithelial Cells (0-5) /hpf Urine Bacteria (FEW) /hpf Urine Mucus (FEW) /hpf 06/13/20 06/13/20 Range/Units 04:44 06:12 WBC (4.23-9.07) K/mm3 RBC (4.63-6.08) M/mm3 Hgb (13.7-17.5) gm/dl Hct (40.1-51.0) % MCV (79.0-92.2) fl MCH (25.7-32.2) pg MCHC (32.2-35.5) g/dl RDW Std Deviation (35.1-43.9) fL Plt Count (163-337) K/mm3 MPV (9.4-12.3) fl Neut % (Auto) (34.0-67.9) % Lymph % (Auto) (21.8-53.1) % [place] % (Auto) (5.3-12.2) % Eos % (Auto) (0.8-7.0) Baso % (Auto) (0.1-1.2) % Neut # (Auto) (1.78-5.38) K/mm3 Lymph # (Auto) (1.32-3.57) K/mm3 [place] # (Auto) (0.30-0.82) K/mm3 Eos # (Auto) (0.04-0.54) K/mm3 Baso # (Auto) (0.01-0.08) K/mm3 Sodium 141 (136-145) mEq/L Potassium 4.0 (3.5-5.1) mEq/L Chloride 106 (98-107) mEq/L Carbon Dioxide 27 (21-32) mEq/L Anion Gap 12.0 (5-15) BUN 9 (7-18) mg/dL Creatinine 0.8 (0.7-1.3) mg/dL Est Cr Clr Drug Dosing 112.09 mL/min Estimated GFR (MDRD) > 60 (>60) mL/min BUN/Creatinine Ratio 11.3 L (14-18) Glucose 140 H (80-115) mg/dL POC Glucose 127 H (80-115) mg/dL Calcium 9.3 (8.5-10.1) mg/dL Magnesium 1.8 (1.8-2.4) mg/dl Total Bilirubin 0.9 (0.2-1.0) mg/dL AST 11 L (15-37) U/L ALT 21 (16-63) U/L Alkaline Phosphatase 86 (46-116) U/L Lactate Dehydrogenase (85-227) U/L C-Reactive Protein 2.3 H* (<1.0) mg/dL Total Protein 6.9 (6.4-8.2) g/dl Albumin 3.1 L (3.4-5.0) g/dl Globulin 3.8 gm/dL Albumin/Globulin Ratio 0.8 L (1-2) Triglycerides (<150) mg/dL Cholesterol (<200) mg/dL LDL Cholesterol Direct (<100) mg/dL HDL Cholesterol (40-59) mg/dL Lipase (73-393) U/L Urine Color (Yellow) Urine Appearance (Clear) Urine pH (5.0-8.0) Ur Specific [place] (1.005-1.030) Urine Protein (Negative) Urine Glucose (UA) (Negative) Urine Ketones (Negative) Urine Occult Blood (Negative) Urine Nitrite (Negative) Urine Bilirubin (Negative) Urine Urobilinogen (0.2-1.0) Ur Leukocyte Esterase (Negative) Urine RBC (0-5) /hpf Urine WBC (0-5) /hpf Ur Epithelial Cells (0-5) /hpf Urine Bacteria (FEW) /hpf Urine Mucus (FEW) /hpf Result Diagrams: 06/13/20 04:44 06/13/20 04:44 Sepsis Event Note - Evaluation Sepsis Screening Result: No Definite Risk - Focused Exam Vital Signs: Vital Signs Temp Pulse Resp BP Pulse Ox 06/13/20 06:10 98.1 F 62 18 132/88 96 06/12/20 19:34 98.1 F 61 16 110/88 97 - Problem List & Annotations (1) Acute pancreatitis SNOMED Code(s): 016007423 Code(s): K85.90 - ACUTE PANCREATITIS WITHOUT NECROSIS OR INFECTION, UNSP Status: Acute Priority: High Current Visit: Yes Qualifiers: Pancreatitis type: unspecified pancreatitis type Acute pancreatitis complication: unspecified Qualified Code(s): K85.90 - Acute pancreatitis without necrosis or infection, unspecified (2) Pulmonary embolism SNOMED Code(s): 92002830 Code(s): I26.99 - OTHER PULMONARY EMBOLISM WITHOUT ACUTE COR PULMONALE Status: Ruled-out Priority: High Current Visit: Yes Qualifiers: Pulmonary embolism type: unspecified Chronicity: acute Acute cor p ulmonale presence: without acute cor pulmonale Qualified Code(s): I26.99 - Other pulmonary embolism without acute cor pulmonale (3) Nausea SNOMED Code(s): 350912600 Code(s): R11.0 - NAUSEA Status: Resolved Priority: High Current Visit: Yes (4) S/P total hip arthroplasty SNOMED Code(s): 551412376593, 960352015374 Code(s): Z96.649 - PRESENCE OF UNSPECIFIED ARTIFICIAL HIP JOINT Status: Chronic Priority: Low Current Visit: No Qualifiers: Laterality: right Qualified Code(s): Z96.641 - Presence of right artificial hip joint (5) Current smoker SNOMED Code(s): 89642673 Code(s): F17.200 - NICOTINE DEPENDENCE, UNSPECIFIED, UNCOMPLICATED Status: Acute Priority: Medium Current Visit: Yes - Problem List Review Problem List Initiated/Reviewed/Updated: Yes - My Orders Last 24 Hours: My Active Orders 06/12/20 07:26 Height and Weight [RC] 06 Oxygen Therapy [RC] PRN Up With Assistance [RC] ASDIRECTED VTE/DVT Education [RC] DAILY Vital Signs [RC] Q4HR Consult to Pre Fabricator [CONS] Routine Acetaminophen [TylenoL] 650 mg PO Q4H PRN HYDROmorphone [Dilaudid] 0.5 mg IVPUSH Q2H PRN Ondansetron [Zofran] 4 mg IV Q6H PRN oxyCODONE 5 mg PO Q4H PRN 06/12/20 07:27 Cardiac Monitoring [RC] CONTINUOUS Intake and Output [RC] 04,16 Pulse Oximetry [RC] PRN 06/12/20 07:41 Blood Glucose Check, Bedside [RC] Q6HR 06/12/20 07:57 Patient Status [ADT] Routine 06/12/20 08:30 Resuscitation Status Routine 06/12/20 09:23 Up ad Coni [RC] ASDIRECTED 06/12/20 Lunch Nothing per Oral Now Diet [DIET] 06/12/20 17:00 Rivaroxaban [Xarelto] 15 mg PO BIDMEALS 06/14/20 05:11 CBC WITH AUTO DIFF [HEME] AM CMP [COMPREHENSIVE METABOLIC PN,CMP] [CHEM] AM CRP [C-REACTIVE PROTEIN] [CHEM] AM MAGNESIUM [CHEM] AM 06/15/20 05:11 CBC WITH AUTO DIFF [HEME] AM CMP [COMPREHENSIVE METABOLIC PN,CMP] [CHEM] AM CRP [C-REACTIVE PROTEIN] [CHEM] AM MAGNESIUM [CHEM] AM 06/16/20 05:11 CBC WITH AUTO DIFF [HEME] AM CMP [COMPREHENSIVE METABOLIC PN,CMP] [CHEM] AM CRP [C-REACTIVE PROTEIN] [CHEM] AM MAGNESIUM [CHEM] AM - Assessment Assessment:: Assessment - day of admission 06/12/20 * 65-year-old male presents to ED with 3-day history of upper quadrant abdominal pain and nausea but no vomiting * Noted to have mildly positive Khan sign and hyperactive bowel sounds * Only medical history is a right MIRTA formed in January 2020 * Twelve-lead EKG shows a sinus rhythm at 74 bpm with early R wave transition, decreased voltage in precordial leads, and Q waves in leads III and aVF. * Labs in ED and on floor: * WBC 9.95 * Hemoglobin 14.6 * Neutrophils 5.79 * INR 0.93 * Sodium 139 * Potassium 3.9 * Anion gap 14.9 * BUN 15, creatinine 0.9, GFR greater than 60 * Glucose 131 * Magnesium 2.2 * Bilirubin 0.7 * GGT 26, AST 23, ALT 26, alkaline phosphatase 108 * Troponin less than 0.017 * CRP 2.6 * Albumin 3.7 * Lipase 66532-->93505 * Dimer 2.01 * Ketones 0.19 * SARS-CoV-2 RNA negative * LDH 148 * Triglycerides 101, total cholesterol 196, LDL 124, HDL 51 * UA is negative * Abdominal x-ray obtained shows scattered bowel gas and nothing acute, formal read pending. * CTA obtained shows subtle acute pulmonary emboli to the lingular segment of the left upper lobe. This expands the arteries suggesting acute PE. Peripancreatic edema is also noted suggesting acute pancreatitis. * He is given IV fluids, Dilaudid for pain, metoclopramide for nausea, Ativan to assist sleep, and 15 mg p.o. Xarelto is started. * Bilateral lower extremity ultrasound is negative for DVT. * Limited upper quadrant abdominal ultrasound shows nothing acute. * He subsequently mated to the medical floor for management of his PE and acute pancreatitis. * [place]'s criteria: 1% predicted mortality on admission 06/13/20: * Patient continues to do well * No abdominal pain, nausea or vomiting * Advance diet to clear liquids and then advance as tolerated today * Labs today: * WBC 7.95. * Hemoglobin 12.9. * Neutrophils 57.3%. * Sodium 141. * Potassium 4.0. * Anion gap 12.0. * BUN 9, creatinine 0.9, GFR greater than 60. Glucose 140. * Magnesium 1.8. * Bilirubin 0.9. * AST 11, ALT 21, alkaline phosphatase 86. * CRP 2.3. * Albumin 3.1 * Discontinue telemetry, I&O monitoring, IV fluids * Dr. Ruvalcaba over-read CTA and does not feel patient has PE. Believes what was seen on initial CTA was artifact * No respiratory symptoms at all * Discussed with Dr. Schwartz. Will discontinue Xarelto. * Likely discharge tomorrow pending continued tolerance of advancing of diet. - Plan Plan:: Acute pancreatitis Nausea, Resolved * Advance to clear liquids today and advance as tolerated * Stop IV fluids once tolerating clear liquids * Antiemetics as ordered * Ambulate * Pain medications as ordered * No need for statins * Pre Fabricator consultation S/P total hip arthroplasty * No acute concerns Current smoker * Nicotine patch * Cessation counseling * Offer patches on discharge Inactive: Pulmonary embolism * Dr. Ruvalcaba over-read CTA and does not feel this is a PE. Believes what was seen was artifact * No respiratory symptoms whatsoever * Will discontinue treatment * Discussed with Dr. Schwartz who agrees Code Status: Full code PCP: None local DVT prophylaxis: Xarelto Social: Patient resides in [place] and splits his time between there and [employer]. Disposition: Patient admitted to M/S/P on telemetry for management of PE and acute pancreatitis. Likely discharge tomorrow pending tolerance of diet.
[2020-06-13] MEDS ORDERED: Magnesium Oxide 400 MG Tab PO ONE (08:27)
[2020-06-13] MEDS ORDERED: Magnesium Hydroxide 400 MG/5 ML Susp 30 ML Cup PO PRN (12:43)
[2020-06-13] MEDS: Nicotine 21 MG/24 Hr Patch TRDERM SCH (13:09)
[2020-06-13] MEDS ORDERED: Remove AND REPLACE NICOTINE Patch TRDERM SCH (14:00)
--- NOTE | 2020-06-14 08:01 | PCM.DCSUM1 ---
Discharge Summary - Hospital Course HPI Initial Comments: This is a 65-year-old male who presents to our ED in the very airplane patroller hours of 06/12/2020 with abdominal pain which he states is primarily in his upper abdomen but radiates along the bottom of each costal margin towards his flank. He states the pain has been present for the past 3 days. States he is only able to eat very small amounts and this does not make the pain better or worse. Reports passing flatus and normal bowel movement within the past 24 hours without blood. States has had this pain on and off for the last 5 weeks and has never had any prior abdominal problems or abdominal surgeries. Reports he occasionally feels nauseated because of the intensity of the pain but he has not vomited. Rates pain at 9 out of 10 and states he is unable to sleep due to the severity of pain. He has been drinking Gatorade and Powerade most of the w eekend and states his urine is clear. Denies any real flank pain and states his only prior surgery was a right MIRTA done with robotic assistance. States he is not taking any current medications. In the ED temp was 36.6 Celsius. Pulse 74. Respirations 16. Blood pressure 162/89. Pulse ox 95%. Twelve-lead EKG is obtained showing a sinus rhythm at 74 bpm with early R wave transition in V2 and decreased voltage in precordial leads. There are Q waves noted in leads III and aVF. No ST changes. Labs are obtained showing a mild leukocytosis at 9.95. Hemoglobin 14.6. Platelet 254. Neutrophils are elevated at 5.79. INR 0.93. Sodium is 139. Potassium 3.9. Chloride 102. Carbon dioxide 26. Anion gap 14.9. BUN is 15, creatinine 0.9. GFR greater than 60. Glucose is 131. Magnesium 2.2. Total bilirubin 0.7. GGT is 26. AST is 23, ALT 26, alkaline phosphatase 1.07. Troponin is less than 0.017. CRP is 2.6. Albumin is 3.7. Lipase is very high at 13,204. D-dimer is elevated at 2.01. Ketones are 0.19. SARS-CoV-2 RNA is negative. On exam patient is noted to have mildly positive Khan sign and tenderness in the epigastric area. Bowel sounds are hyperactive in all [address] angiogram of the chest is obtained and there are subtle acute pulmonary emboli to lingular segment of the left upper lobe. This expands the arteries suggesting it represents an acute PE. There is also peripancreatic edema noted suggesting acute pancreatitis. Abdominal x-ray is obtained which shows air within the colon but nothing acute. He is given Dilaudid for pain as well as IV fluids. He is also given metoclopramide for nausea and Xarelto for his PE 50 mg. Is given 0.5 mg of IV push lorazepam to help with sleep and spends the night in the emergency room. Orders are placed for bilateral lower extremity ultrasound, limited upper abdominal ultrasound, lipid panel, UA. He carries a history of a right MIRTA in early January 2020. He is not on any medications. He is not a smoker. He resides in [place] but splits his time between there and [place]. He does not have a PCP locally but does have one in [place]. Diagnosis: Stroke: No - Discharge Data Discharge Date: 06/14/20 (Admit date: 06/12/20) Discharge Disposition: Home, Self-Care 01 Condition: Good - Referral to Home Health Primary Care Physician: PCP None - Discharge Diagnosis/Problem(s) (1) Acute pancreatitis SNOMED Code(s): 028822860 ICD Code: K85.90 - ACUTE PANCREATITIS WITHOUT NECROSIS OR INFECTION, UNSP Status: Acute Priority: High Qualifiers: Pancreatitis type: unspecified pancreatitis type Acute pancreatitis complication: unspecified Qualified Code(s): K85.90 - Acute pancreatitis without necrosis or infection, unspecified (2) Pulmonary embolism SNOMED Code(s): 13781344 ICD Code: I26.99 - OTHER PULMONARY EMBOLISM WITHOUT ACUTE COR PULMONALE Status: Ruled-out Priority: High Qualifiers: Pulmonary embolism type: unspecified Chronicity: acute Acute cor pulmonale presence: without acute cor pulmonale Qualified Code(s): I26.99 - Other pulmonary embolism without acute cor pulmonale (3) Nausea SNOMED Code(s): 706558787 ICD Code: R11.0 - NAUSEA Status: Resolved Priority: High (4) S/P total hip arthroplasty SNOMED Code(s): 858235558341, 609904025925 ICD Code: Z96.649 - PRESENCE OF UNSPECIFIED ARTIFICIAL HIP JOINT Status: Chronic Priority: Low Qualifiers: Laterality: right Qualified Code(s): Z96.641 - Presence of right artificial hip joint (5) Current smoker SNOMED Code(s): 44511351 ICD Code: F17.200 - NICOTINE DEPENDENCE, UNSPECIFIED, UNCOMPLICATED Status: Acute Priority: Medium - Patient Summary/Data Consults: Consultations 06/12/20 07:26 Consult to Hack Driver [CONS] Routine Labs Pending at D/C: None Recommended Follow-up Testing/Procedures: Follow-up with primary care provider within 7-10 days of discharge, sooner if needed -Recommend repeat CBC, CMP, and magnesium at this visit. -Consider repeat lipase -Patient will make this appointment back in [place] Consider GI follow-up if symptoms return. Hospital Course: This is a 65-year-old male who presents to ED on 06/12/2020 with 3-day history of upper quadrant abdominal pain and nausea but no vomiting. In the ED he is note d to have a mildly positive Khan sign and hyperactive bowel sounds. Only past medical history is a right MIRTA which was performed in January 2020. In the ED abdominal x-rays obtained showing nothing acute. He has mild leukocytosis at 9.95 but his lipase is noted to be 13,204. D-dimer was obtained and was 2.01 and CTA is performed. Initial read from [facility] is noted to show a subtle pulmonary emboli in the lingular segment of the left upper lobe. It is noted to expand the arteries suggest an acute PE. Peripancreatic edema is also noted suggesting acute pancreatitis. Bilateral lower extremity ultrasound is obtained and is negative for PE. Upper quadrant abdominal ultrasound is obtained showing nothing acute. He is started on Xarelto 15 mg twice daily and made n.p.o. status. He is given IV fluids and admitted management of his minimal pulmonary embolism and pancreatitis. Once on the floor our in-house radiologist, Dr. Ruvalcaba, over reads the CTA and does not feel that this is a pulmonary embolism. He believes that it is artifact. Patient has had no respiratory symptoms whatsoever and no real past medical history. He is quite active. He does occasionally utilize chewing tobacco and does have a remote history of MIRTA last January. Discussed with Dr. Schwartz, attending hospitalist, and we all agree that patient can discontinue his Xarelto. Otherwise patient's abdominal pain resolves rapidly. His diet is advanced from clear liquid to full liquid to regular without any difficulty. Patient ambulates around the room. Patient did report some mild constipation and he was given senna for this resulting in a good bowel movement. Denies any other concerns. He did see our dietitian to discuss dietary changes for pancreatitis. He splits his time between [place] and [place] and is heading back home to [place] next week. He reports he will follow-up with his primary care provider there. Records request was completed to have his records sent there. We did [facility] follow-up and it was recommended patient follow-up with GI if symptoms return. He was instructed to contact primary care provider or return the emergency room if symptoms do return or worsen. He does utilize chewing tobacco and we discussed this prior to discharge. He did not want any tobacco cessation aids at discharge. No new medications and no prior home medications. He does report taking [id number] zinc and magnesium and he was instructed to continue this as his magnesium was low on admission. Discharged home today. - Patient Instructions Diet: Usual Diet as Tolerated Diet, Other: Low fat, non-greasy. Take it easy and advance slow Activity: As Tolerated Driving: May Drive Today Showering/Bathing: May Shower Notify Provider of: Fever, Increased Pain, Nausea and/or Vomiting Other/Special Instructions: Follow-up with primary care provider within 7-10 days. Consider GI follow-up if pain returns. Take it easy with your diet. Advance as tolerated. If pain returns, go back to clear liquids and contact primary care provider or return to the Emergency Department. No new medications. Should symptoms return or worsen contact primary care provider or return to the Emergency Department. - Discharge Plan *PRESCRIPTION DRUG MONITORING PROGRAM REVIEWED*: Not Applicable *COPY OF PRESCRIPTION DRUG MONITORING REPORT IN PATIENT HILARIO: Not Applicable Tobacco Cessation Medication: Prescription Refused Home Medications: Home Meds . [No Known Home Meds] 06/12/20 [History] Oxygen Therapy Mode: Room Air Patient Handouts: Pulmonary Embolism, Acute Pancreatitis, Steps to Quit Smoking Forms: ED Department Discharge Referrals: DR Lupillo [Other] (This is patients Primary Doctor, Patient wants to make own appt.) - Discharge Summary/Plan Comment DC Time >30 min.: No - General Info Date of Service: 06/14/20 Admission Dx/Problem (Free Text: Admission Diagnosis/Problem Admission Diagnosis/Problem Pancreatitis Functional Status: Reports: Pain Controlled, Tolerating Diet, Ambulating, Urinating. Denies: New Symptoms - Review of Systems General: Reports: Fatigue (Hasn't slept well ). Denies: Fever, Weakness, Malaise, Chills HEENT: Reports: No Symptoms. Denies: Headaches, Sore Throat Pulmonary: Reports: No Symptoms. Denies: Shortness of Breath, Pleuritic Chest Pain, Cough, Sputum, Wheezing Cardiovascular: Reports: No Symptoms. Denies: Chest Pain, Palpitations, Dyspnea on Exertion Gastrointestinal: Reports: No Symptoms. Denies: Abdominal Pain, Constipation, Decreased Appetite, Diarrhea, Difficulty Swallowing, Nausea, Vomiting Genitourinary: Reports: No Symptoms. Denies: Pain Musculoskeletal: Reports: No Symptoms Skin: Reports: No Symptoms. Denies: Cyanosis Neurological: Reports: No Symptoms. Denies: Confusion, Difficulty Walking, Gait Disturbance Psychiatric: Reports: No Symptoms - Patient Data Vitals - Most Recent: Last Vital Signs Temp 97.9 F 06/14/20 03:55 Pulse 64 06/14/20 03:55 Resp 18 06/14/20 03:55 BP 120/85 06/14/20 03:55 Pulse Ox 96 06/14/20 03:55 Weight - Most Recent: 275 lb 9.6 oz I&O - Last 24 hours: Intake & Output 06/13/20 06/14/20 06/14/20 22:59 06:59 14:59 Intake Total 1954 300 Balance 1954 300 Lab Results - Last 24 hrs: Laboratory Results - last 24 hr 06/13/20 06/14/20 06/14/20 Range/Units 11:14 04:35 04:35 WBC 8.02 (4.23-9.07) K/mm3 RBC 4.72 (4.63-6.08) M/mm3 Hgb 14.1 (13.7-17.5) gm/dl Hct 43.0 (40.1-51.0) % MCV 91.1 (79.0-92.2) fl MCH 29.9 (25.7-32.2) pg MCHC 32.8 (32.2-35.5) g/dl RDW Std Deviation 42.6 (35.1-43.9) fL Plt Count 248 (163-337) K/mm3 MPV 10.0 (9.4-12.3) fl Neut % (Auto) 51.0 (34.0-67.9) % Lymph % (Auto) 32.7 (21.8-53.1) % Ogle % (Auto) 8.7 (5.3-12.2) % Eos % (Auto) 6.9 (0.8-7.0) Baso % (Auto) 0.6 (0.1-1.2) % Neut # (Auto) 4.09 (1.78-5.38) K/mm3 Lymph # (Auto) 2.62 (1.32-3.57) K/mm3 Ogle # (Auto) 0.70 (0.30-0.82) K/mm3 Eos # (Auto) 0.55 H (0.04-0.54) K/mm3 Baso # (Auto) 0.05 (0.01-0.08) K/mm3 Sodium 140 (136-145) mEq/L Potassium 4.3 (3.5-5.1) mEq/L Chloride 104 (98-107) mEq/L Carbon Dioxide 26 (21-32) mEq/L Anion Gap 14.3 (5-15) BUN 11 (7-18) mg/dL Creatinine 1.0 (0.7-1.3) mg/dL Est Cr Clr Drug Dosing 89.67 mL/min Estimated GFR (MDRD) > 60 (>60) mL/min BUN/Creatinine Ratio 11.0 L (14-18) Glucose 102 (80-115) mg/dL POC Glucose 86 (80-115) mg/dL Calcium 9.6 (8.5-10.1) mg/dL Magnesium 2.1 (1.8-2.4) mg/dl Total Bilirubin 1.2 H (0.2-1.0) mg/dL AST 21 (15-37) U/L ALT 23 (16-63) U/L Alkaline Phosphatase 99 (46-116) U/L C-Reactive Protein 2.0 H* (<1.0) mg/dL Total Protein 7.8 (6.4-8.2) g/dl Albumin 3.6 (3.4-5.0) g/dl Globulin 4.2 gm/dL Albumin/Globulin Ratio 0.9 L (1-2) Med Orders - Current: Current Medications Discontinued Medications Acetaminophen (Acetaminophen 325 Mg Tab) 650 mg PO Q4H PRN PRN Reason: Pain (Mild 1-3)/fever Hydrocodone Bitart/Acetaminophen (Acetaminophen/Hydrocodone 325-10 Mg Tab) 1 tab PO Q3H PRN PRN Reason: Pain (moderate 4-6) Last Admin: 06/12/20 16:29 Dose: 1 tab Documented by: Hydromorphone HCl (Hydromorphone 0.5 Mg/0.5 Ml Syringe) 0.5 mg IVPUSH ONETIME ONE Stop: 06/12/20 01:18 Last Admin: 06/12/20 01:29 Dose: 0.5 mg Documented by: Hydromorphone HCl (Hydromorphone 1 Mg/Ml Syringe) 1 mg IVPUSH ONETIME ONE Stop: 06/12/20 03:13 Last Admin: 06/12/20 03:18 Dose: 1 mg Documented by: Hydromorphone HCl (Hydromorphone 0.5 Mg/0.5 Ml Syringe) 0.5 mg IVPUSH Q2H PRN PRN Reason: Pain (severe 7-10) Dextrose/Sodium Chloride (Dextrose 5%-Normal Saline) 1,000 mls @ 250 mls/hr IV ASDIRECTED [facility] Last Admin: 06/12/20 01:27 Dose: 250 mls/hr Documented by: Sodium Chloride (Normal Saline) 100 mls @ 60 drops/min IV ASDIRECTED [facility] Last Admin: 06/12/20 03:07 Dose: 60 drops/min Documented by: Lactated Ringer's (Ringers, Lactated) 1,000 mls @ 150 mls/hr IV ASDIRECTED [facility] Last Admin: 06/12/20 03:53 Dose: 150 mls/hr Documented by: Dextrose/Lactated Ringer's (Dextrose 5%-Lactated Ringers) 1,000 mls @ 150 mls/hr IV ASDIRECTED [facility] Last Admin: 06/13/20 06:04 Dose: 150 mls/hr Documented by: Iopamidol (Iopamidol 755 Mg/Ml 100 Ml Bottle) 100 ml IVPUSH ONETIME ONE Stop: 06/12/20 02:20 Last Admin: 06/12/20 03:07 Dose: 100 ml Documented by: Lorazepam (Lorazepam 2 Mg/Ml Sdv) 0.5 mg IVPUSH ONETIME ONE Stop: 06/12/20 03:13 Last Admin: 06/12/20 03:19 Dose: 0.5 mg Documented by: Magnesium Hydroxide (Magnesium Hydroxide 400 Mg/5 Ml Susp 30 Ml Cup) 30 ml PO Q6H PRN PRN Reason: Constipation Magnesium Oxide (Magnesium Oxide 400 Mg Tab) 400 mg PO ONETIME ONE Stop: 06/13/20 08:28 Last Admin: 06/13/20 09:11 Dose: 400 mg Documented by: Metoclopramide HCl (Metoclopramide 10 Mg/2 Ml Sdv) 10 mg IVPUSH ONETIME ONE Stop: 06/12/20 01:18 Last Admin: 06/12/20 01:27 Dose: 10 mg Documented by: Miscellaneous Information (Remove And Replace Nicotine Patch) 1 ea TRDERM DAILY@1300 [facility] Last Admin: 06/12/20 14:55 Dose: Not Given Documented by: Miscellaneous Information (Remove And Replace Nicotine Patch) 0 ea TRDERM DAILY@1400 [facility] Last Admin: 06/13/20 13:09 Dose: 1 ea Documented by: Nicotine (Nicotine 21 Mg/24 Hr Patch) 21 mg TRDERM DAILY [facility] Last Admin: 06/12/20 14:55 Dose: Not Given Documented by: Nicotine (Nicotine 21 Mg/24 Hr Patch) 21 mg TRDERM Q24H [facility] Last Admin: 06/13/20 13:09 Dose: 21 mg Documented by: Ondansetron HCl (Ondansetron 4 Mg/2 Ml Sdv) 4 mg IV Q6H PRN PRN Reason: Nausea/Vomiting Oxycodone HCl (Oxycodone 5 Mg Tab) 5 mg PO Q4H PRN PRN Reason: Pain (moderate 4-6) Rivaroxaban (Rivaroxaban 15 Mg Tab) 15 mg PO ONETIME ONE Stop: 06/12/20 03:41 Last Admin: 06/12/20 03:53 Dose: 15 mg Documented by: Rivaroxaban (Rivaroxaban 15 Mg Tab) 15 mg PO BIDMEALS [facility] Last Admin: 06/13/20 06:04 Dose: 15 mg Documented by: Senna/Docusate Sodium (Docusate Sodium/Sennosides 50-8.6 Mg Tab) 1 tab PO BID [facility] Last Admin: 06/13/20 20:11 Dose: 1 tab Documented by: Sodium Chloride (Sodium Chloride 0.9% 10 Ml Syringe) 10 ml FLUSH BOLUS ZEKE Last Admin: 06/12/20 03:07 Dose: 10 ml Documented by: - Exam Quality Assessment: Reports: DVT Prophylaxis. Denies: Supplemental Oxygen, Urine Catheter General: Reports: Alert, Oriented, Cooperative, No Acute Distress HEENT: Reports: Pupils Equal, Pupils Reactive, Mucous Membr. Moist/[place] Neck: Reports: Supple, Trachea Midline Lungs: Reports: Clear to Auscultation, Normal Respiratory Effort Cardiovascular: Reports: Regular Rate, Regular Rhythm GI/Abdominal Exam: Normal Bowel Sounds, Soft, Non-Tender, No Distention (Male) Exam: Deferred Rectal (Males) Exam: Deferred Back Exam: Reports: Normal Inspection, Full Range of Motion Extremities: Normal Inspection, Normal Range of Motion, Non-Tender, No Pedal Edema, Normal Capillary Refill Skin: Reports: Warm, Dry, Intact Neurological: Reports: No New Focal Deficit Psy/Mental Status: Reports: Alert, Normal Affect, Normal Mood
== END 2020-06-14 07:46 | disposition home or self-care (01) | DRG 282 ==
LOC: JD.ED 00:57 → JD.MS 06:59
PROVIDERS: ADMIT Family Medicine; ATTEND Family Medicine
DX: K85.90 Acute pancreatitis without necrosis or infection, unspecified (principal); Z96.641 Presence of right artificial hip joint; K59.00 Constipation, unspecified; Z20.822 Contact with and (suspected) exposure to COVID-19; F17.220 Nicotine dependence, chewing tobacco, uncomplicated
CPT/HCPCS: 36415; 71275; 71275-26; 74018; 74018-26; 76705; 76705-26; 80053; 81001; 82009; 82465; 82962; 82977; 83615; 83690; 83718; 83721; 83735; 84478; 84484; 85025; 85379; 85610; 85730; 86140; 93005; 93010; 93970; 93970-26; 96374; 96375; 96376; 99222; 99233; 99238; 99285; 99285-25; A9270-GY; J1170; J2060; J2765; J7042; J7120; J7121; Q9967; U0002